=== PATIENT | male | born 1970 | race Caucasian/White ===

== ENCOUNTER 2017-04-01 02:06 | Emergency (ER) | payer OTHER ==
[~2017-04-01] VITALS: Ht 165.1 cm; Wt 81.0 kg
[2017-04-01 02:09] VITALS: BP 176/76
== END 2017-04-01 04:16 | disposition left against medical advice (07) ==
LOC: ER 02:11
DX: R51 Headache (principal); Z53.21 Procedure and treatment not carried out due to patient leaving prior to being seen by health care provider